=== PATIENT | female | born 1940 | race Caucasian/White ===

== ENCOUNTER → 2018-06-28 | Outpatient (CLI) | payer MEDICARE ==
[~2018-06-28] MED LIST: AMARYL4 MG PO; BIOTIN1 MG PO; COUMADIN 1MG TAB1 M1 PO; COUMADIN 2 MG TA2 M1 PO; CYMBALTA60 MG PO; HUMALOG100 UNIT/1; LANTUS SUBQ; LISINOPRIL-HCT1 EAC1 PO; NORCO 5-325 TA1 EACH PO; PRILOSEC 20 MG20 MG PO; SORINE 80 MG TA80 M1 PO; VITAMIN D31000 UNI2 PO; ZOFRAN ODT4 MG PO
[2018-06-28 08:44] LABS: CREATININE 0.9 mg/dL (0.6-1.0)
== END ==
LOC: NUC 08:07
PROVIDERS: Internal Medicine
DX: E27.9 Disorder of adrenal gland, unspecified (principal); M85.89 Other specified disorders of bone density and structure, multiple sites; E83.52 Hypercalcemia; I70.0 Atherosclerosis of aorta; M25.78 Osteophyte, vertebrae; R80.9 Proteinuria, unspecified; E11.65 Type 2 diabetes mellitus with hyperglycemia; I10 Essential (primary) hypertension; E78.5 Hyperlipidemia, unspecified; I48.2 Chronic atrial fibrillation; Z78.0 Asymptomatic menopausal state; Z90.49 Acquired absence of other specified parts of digestive tract

== ENCOUNTER → 2018-07-25 | Outpatient (CLI) | payer MEDICARE ==
--- NOTE | 2018-07-25 11:53 | 2DMMODE ---
[facility] [place] [address] 2 D/M-MODE ECHOCARDIOGRAM Name: TIGIST LAI LIN Room #: REG [facility]#: [id number] ������������� Admission: 07/25/18 ������������� Attend Phys: Sg Hernandez MD Discharge: ��� ������������� ��� Date of : 38 Date of Service: 07/25/18 1152 �� Report #: [id number] �������� ��������������������������������������������[id number] THIS REPORT FOR: //name// APPROVED REPORT Study performed: 07/25/2018 10:42:49 EXAM: Comprehensive 2D, Doppler, and color-flow Echocardiogram Patient Location: Out-Patient Room #: Echo lab 2 Status: routine BSA: 1.90 HR: 62 bpm BP: 122/76 mmHg Rhythm: NSR Other Information Study Quality: Good Indications CAD Hypertension/HDD 2D Dimensions RVDd: 31.95 mm IVSd: 10.70 (7-11mm) LVOT Diam: 19.50 (18-24mm) LVDd: 45.28 mm PWd: 11.37 (7-11mm) Ascending Ao: 30.74 (22-36mm) LVDs: 28.23 (25-40mm) Aortic Root: 30.96 mm IVC: 17.00 mm Volumes Left Atrial Volume (Systole) Single Plane 4CH: 49.50 mL Single Plane 2CH: 39.38 mL LA ESV Index: 25.00 mL/m2 Aortic Valve AoV Peak Connor.: 0.99 m/s AO Peak Gr.: 3.92 mmHg LVOT Max P.19 mmHg LVOT Max V: 0.89 m/s BRITTANIE Vmax: 2.69 cm2 Mitral Valve E/A Ratio: 0.9 MV Decel. Time: 174.20 ms [facility] [address] [place] [address] 2 D/M-MODE ECHOCARDIOGRAM Name: TIGIST LAI Room #: REG [facility]#: [id number] ������������� Admission: 07/25/18 ������������� Attend Phys: Sg Hernandez MD Discharge: ��� ������������� ��� Date of : 38 Date of Service: 07/25/18 1152 �� Report #: [id number] �������� ��������������������������������������������[id number] MV E Max Connor.: 0.65 m/s MV A Connor.: 0.70 m/s MV PHT: 50.52 ms IVRT: 119.95 ms Pulmonary Valve PV Peak Connor.: 0.62 m/s PV Peak Gr.: 1.56 mmHg Pulmonary Vein P Vein S: 0.48 m/s P Vein A: 0.22 m/s P Vein D: 0.33 m/s P Vein A Dur.: 115.3 msec P Vein S/D Ratio: 1.45 Left Ventricle The left ventricle is normal size. There is normal LV segmental wall motion. There is normal left ventricular wall thickness. Left ventricular systolic function is normal. The left ventricular ejection fraction is within the normal range. LVEF is 55-60%. Grade I - abnormal relaxation pattern. Right Ventricle The right ventricle is normal size. The right ventricular systolic function is normal. Atria The left atrium size is normal. The right atrium size is normal. Aortic Valve The aortic valve is normal in structure. No aortic regurgitation is present. There is no aortic valvular stenosis. Mitral Valve The mitral valve is normal in structure. Trace mitral regurgitation. No evidence of mitral valve stenosis. Tricuspid Valve The tricuspid valve is normal in structure. There is no tricuspid valve regurgitation noted. Pulmonic Valve The pulmonary valve is normal in structure. There is no pulmonic valvular regurgitation. Great Vessels The aortic root is normal in size. IVC is normal in size and [facility] [address] [place] [address] 2 D/M-MODE ECHOCARDIOGRAM Name: MINGAMRIKFRANCK LIN Room #: REG [facility]#: [id number] ������������� Admission: 07/25/18 ������������� Attend Phys: Sg Hernandez MD Discharge: ��� ������������� ��� Date of : 38 Date of Service: 07/25/18 1152 �� Report #: [id number] �������� ��������������������������������������������[id number] collapses >50% with inspiration. Pericardium There is no pericardial effusion. <Conclusion> The left ventricle is normal size. There is normal left ventricular wall thickness. Left ventricular systolic function is normal. Grade I - abnormal relaxation pattern. The right ventricle is normal size. The left atrium size is normal. The right atrium size is normal. The aortic valve is normal in structure. Trace mitral regurgitation. There is no tricuspid valve regurgitation noted. ��������������������������������������������� <ELECTRONICALLY SIGNED> ���������������������������������������� By: Sg Hernandez MD ��������������������������������������������� 07/25/18 1152 115 115 Sg Hernandez MD /INF
== END ==
LOC: CV 07:56
DX: I25.119 Atherosclerotic heart disease of native coronary artery with unspecified angina pectoris (principal); I10 Essential (primary) hypertension; Z88.5 Allergy status to narcotic agent; Z88.0 Allergy status to penicillin

== ENCOUNTER → 2019-07-31 | Outpatient (CLI) | payer MEDICARE | LOC: SJCVC 10:01 | DX: R94.31 Abnormal electrocardiogram [ECG] [EKG] (principal); I48.91 Unspecified atrial fibrillation; I25.10 Atherosclerotic heart disease of native coronary artery without angina pectoris; R60.9 Edema, unspecified; I10 Essential (primary) hypertension; E78.00 Pure hypercholesterolemia, unspecified; I48.0 Paroxysmal atrial fibrillation ==

== ENCOUNTER 2019-10-10 11:56 | Emergency (ER) | payer MEDICARE ==
[~2019-10-10] VITALS: Ht 157.5 cm; Wt 90.7 kg
[2019-10-10] MEDS ORDERED: ELIQUIS5 MG PO (12:28)
[2019-10-10 13:57] LABS: ABSOLUTE NEUTROPHILS 5.1 thou/uL (1.4-8.2); EOSINOPHILS 1.6 % (0.0-3.0); HEMATOCRIT 46.3 % (37.0-47.0); HEMOGLOBIN 15.4 gm/dL (12.0-15.0); LYMPHOCYTES 27.2 % (24.0-44.0); MCH 29.4 pg (26.0-34.0); MCHC 33.4 g/dL (28.0-37.0); MCV 88.1 fL (80.0-100.0); MONOCYTES 9.1 % (1.0-8.0); PLATELET COUNT 238 thou/uL (150-400); POLYS 61.1 % (36.0-66.0); RBC 5.25 mil/uL (4.20-5.00); RDW 13.6 % (10.5-14.5); WBC 8.3 thou/uL (4.0-11.0)
[2019-10-10 14:13] LABS: APTT 24.3 Seconds (24.5-32.8); INR 1.1; PROTIME 10.9 Seconds (9.3-11.4)
[2019-10-10 14:25] LABS: ANION GAP 10 mmol/L (7-16); BUN 14 mg/dL (7-18); CALCIUM 9.7 mg/dL (8.5-10.1); CHLORIDE 103 mmol/L (98-107); CO2 26 mmol/L (21-32); CREATININE 0.9 mg/dL (0.6-1.0); GLUCOSE 157 mg/dL (74-106); POTASSIUM 4.5 mmol/L (3.5-5.1); SODIUM 139 mmol/L (136-145)
[2019-10-10 14:34] LABS: ALBUMIN 3.3 g/dL (3.4-5.0); MAGNESIUM 1.6 mg/dL (1.8-2.4); SGOT 33 U/L (15-37); SGPT 28 U/L (30-65); TOTAL BILIRUBIN 0.4 mg/dL (0.2-1.0); TOTAL PROTEIN 7.4 g/dL (6.4-8.2); TROPONIN-I <0.06 ng/mL (<0.06)
[2019-10-10 14:37] LABS: URINE BILIRUBIN NEGATIVE (Negative); URINE BLOOD NEGATIVE (Negative); URINE CLARITY CLEAR; URINE COLOR YELLOW; URINE GLUCOSE-RANDOM* NEGATIVE (Negative); URINE KETONES NEGATIVE (Negative); URINE LEUKOCYTES-REFLEX NEGATIVE (Negative); URINE NITRITE-REFLEX NEGATIVE (Negative); URINE PROTEIN (DIPSTICK) NEGATIVE (Negative); URINE UROBILINOGEN 0.2 E.U./dl (0.2-1.0)
[2019-10-10] MEDS ORDERED: DOXYCYCLINE 10100 MG PO (15:27)
--- NOTE | 2019-10-10 16:24 | EKG ---
[facility] [place] [address] ELECTROCARDIOGRAM REPORT Name: TIGIST LAI Room #: REG [facility].#: [id number] Admission: 10/10/19 Attend Phys: Discharge: Date of : 38 Report #: [id number] THIS REPORT FOR: cc: Lucie Chavez MD, Nora P. MD Lundgren,Mendez oRb MD [facility] ~ THIS REPORT FOR: //name// [facility] ED Test Date: 2019-10-10 Test Time: 12:37:54 Pat Name: TIGIST LAI Department: Room: Gender: F Logistician: [facility] : 1940 Requested By: Ryder Escobedo Order Number: [id number] MD: Mendez Key Measurements Intervals [place] Rate: 146 P: NM: QRS: 2 QRSD: 78 T: 30 QT: 305 QTc: 476 Interpretive Statements Atrial fibrillation with rapid V-rate Minimal ST depression, inferior leads Compared to ECG 05/26/2016 09:48:26 Heart rates are faster Electronically Signed On 10-10-2019 16:24:16 CDT by Mendez Key [email or web address] <ELECTRONICALLY SIGNED> By: Mendez Key MD, FACC 10/10/19 1624 1237 1237 Mendez Key MD, [facility] /EPI
[2019-10-10 16:39] VITALS: BP 145/85
== END 2019-10-10 16:40 | disposition home or self-care (01) ==
LOC: ER 11:56
PROVIDERS: Emergency Medicine
DX: J06.9 Acute upper respiratory infection, unspecified (principal); I48.20 Chronic atrial fibrillation, unspecified; J32.9 Chronic sinusitis, unspecified; E11.9 Type 2 diabetes mellitus without complications; I10 Essential (primary) hypertension; Z20.828 Contact with and (suspected) exposure to other viral communicable diseases; Z90.49 Acquired absence of other specified parts of digestive tract; Z98.61 Coronary angioplasty status; Z96.652 Presence of left artificial knee joint; Z98.890 Other specified postprocedural states; Z79.899 Other long term (current) drug therapy; Z79.4 Long term (current) use of insulin; Z88.5 Allergy status to narcotic agent; Z88.0 Allergy status to penicillin

== ENCOUNTER → 2019-11-05 | Outpatient (CLI) | payer MEDICARE ==
[~2019-11-05] MED LIST changes: +DOXYCYCLINE 10100 MG PO; +ELIQUIS5 MG PO
== END ==
LOC: SJCVCIMAG 11:32
PROVIDERS: ATTEND Internal Medicine Cardiovascular Disease
DX: I34.0 Nonrheumatic mitral (valve) insufficiency (principal); I48.0 Paroxysmal atrial fibrillation; I11.9 Hypertensive heart disease without heart failure; R94.31 Abnormal electrocardiogram [ECG] [EKG]; I25.10 Atherosclerotic heart disease of native coronary artery without angina pectoris; E78.00 Pure hypercholesterolemia, unspecified; R60.9 Edema, unspecified; E11.9 Type 2 diabetes mellitus without complications; E78.5 Hyperlipidemia, unspecified; Z79.899 Other long term (current) drug therapy; Z79.4 Long term (current) use of insulin; Z82.49 Family history of ischemic heart disease and other diseases of the circulatory system

== ENCOUNTER → 2020-05-06 | Outpatient (CLI) | payer MEDICARE | LOC: SJCVC 13:48 | PROVIDERS: ATTEND Internal Medicine | DX: R94.31 Abnormal electrocardiogram [ECG] [EKG] (principal); I48.0 Paroxysmal atrial fibrillation; I10 Essential (primary) hypertension; E78.00 Pure hypercholesterolemia, unspecified; R60.9 Edema, unspecified; E11.9 Type 2 diabetes mellitus without complications; R60.0 Localized edema; E78.5 Hyperlipidemia, unspecified; Z79.4 Long term (current) use of insulin; Z79.899 Other long term (current) drug therapy; Z88.5 Allergy status to narcotic agent; Z88.0 Allergy status to penicillin ==